=== PATIENT | female | born 1980 | race Caucasian/White ===

== ENCOUNTER 2017-05-18 22:21 | Emergency (ER) | payer MEDICAID, SELFPAY ==
[2017-05-18 22:22] VITALS: BP 117/69; PULSE 78; RESP 16; TEMP 37.4; O2SAT 97; BMI 28.3
--- NOTE | 2017-05-18 22:38 | ED.VISSUMM ---
- ER Visit Summary Date of Service: 05/18/17 Chief Complaint: Right breast pain History of Present Illness: The patient is a 37 F who is 16 weeks presents to the emergency department with 24 hours of increasing right breast pain. Patient states that 15 years ago, she had an abscess just below the right nipple. She did have operative incision and drainage in [place]. She states that it was thought to be secondary to her nipple piercing. She states that she put the piercing back in 2 years later. She has had no problems since. Over the past 24 hours, she had increasing pain in the right nipple. She states that it feels swollen. She states there was no fluid that can be expressed. She denies any fevers or chills. She has no history of immunosuppression. Physical Examination: Exam is relatively unremarkable. There is no significant tenderness of the breast. The right nipple is edematous and indurated. The piercing is mobile but does cause pain. There is no purulence. There is no definite fluctuance. There is no surrounding cellulitis. Test Results: [] Emergency Department Course and Treatment: The patient may have an early abscess, but there was no fluctuance. I do not feel there is any purulent fluid. As it does involve the nipple, I do not feel it appropriate at this time to attempt incision and drainage as there is no definitive fluctuance or fluid collection. I am going to start the patient on Augmentin. I did general counselor her on warm compresses. This almost appears like an early mastitis. The patient will continue warm compresses. She will continue gentle traction on the nipple piercing. I did general counselor her that if there is any worsening symptoms in the next 24-48 hours to return to the emergency department for reevaluation. Patient is comfortable with this plan of care and will be discharged home. Treatment Plan: [] Disposition: Discharge Impression:. Right breast mastitis This note was generated with [employer] dictation software. It may contain incorrect words, spelling, and punctuation that were not noted in review of the chart prior to signing ED Disposition - Plan for ED Patient: Chief Complaint: Cellulitis Instructions: ED Breast Infec Prescriptions: Amox/Clavulanate Tablet [Augmentin Tablet] 875 mg PO Q12H #20 tab Referrals: Hal Moralez MD [Primary Care Provider] -
--- NOTE | 2017-05-18 22:41 | ED.DCSUM_ITS ---
- ER Visit Summary Date of Service: 05/18/17 Chief Complaint: Right breast pain History of Present Illness: The patient is a 37 F who is 16 weeks presents to the emergency department with 24 hours of increasing right breast pain. Patient states that 15 years ago, she had an abscess just below the right nipple. She did have operative incision and drainage in [place]. She states that it was thought to be secondary to her nipple piercing. She states that she put the piercing back in 2 years later. She has had no problems since. Over the past 24 hours, she had increasing pain in the right nipple. She states that it feels swollen. She states there was no fluid that can be expressed. She denies any fevers or chills. She has no history of immunosuppression. Physical Examination: Exam is relatively unremarkable. There is no significant tenderness of the breast. The right nipple is edematous and indurated. The piercing is mobile but does cause pain. There is no purulence. There is no definite fluctuance. There is no surrounding cellulitis. Test Results: [] Emergency Department Course and Treatment: The patient may have an early abscess , but there was no fluctuance. I do not feel there is any purulent fluid. As it does involve the nipple, I do not feel it appropriate at this time to attempt incision and drainage as there is no definitive fluctuance or fluid collection. I am going to start the patient on Augmentin. I did awake overnight counselor her on warm compresses. This almost appears like an early mastitis. The patient will continue warm compresses. She will continue gentle traction on the nipple piercing. I did awake overnight counselor her that if there is any worsening symptoms in the next 24-48 hours to return to the emergency department for reevaluation. Patient is comfortable with this plan of care and will be discharged home. Treatment Plan: [] Disposition: Discharge Impression:. Right breast mastitis This note was generated with [employer] dictation software. It may contain incorrect words, spelling, and punctuation that were not noted in review of the chart prior to signing ED Disposition - Plan for ED Patient: Chief Complaint: Cellulitis Instructions: ED Breast Infec Prescriptions: Amox/Clavulanate Tablet [Augmentin Tablet] 875 mg PO Q12H #20 tab Referrals: Hal Moralez MD [Primary Care Provider] -
[2017-05-18] MEDS: Amox/Clavulanate 875 MG Tablet PO (22:46)
== END 2017-05-18 22:53 | disposition home or self-care (01) ==
PROVIDERS: Emergency Provider Emergency Medicine; Family Provider Family Medicine; PCP Family Medicine
DX: O91.212 Nonpurulent mastitis associated with pregnancy, second trimester (principal); Z3A.16 16 weeks gestation of pregnancy; O99.332 Smoking (tobacco) complicating pregnancy, second trimester; Z79.899 Other long term (current) drug therapy
CPT/HCPCS: 99283

== ENCOUNTER 2017-05-24 22:18 | Emergency (ER) | payer MEDICAID, SELFPAY ==
[2017-05-24 22:20] VITALS: BP 132/74; PULSE 88; RESP 16; TEMP 37.1; O2SAT 98; BMI 27.3
--- NOTE | 2017-05-24 23:22 | ED.DCSUM_ITS ---
- ER Visit Summary Date of Service: 05/24/17 Chief Complaint: [Right breast swelling and pain] History of Present Illness: The patient is a 37 F [resents the emergency department with right breast swelling and pain. It has been going on for the last 1 week. She was seen in the emergency department a week ago. She was started on Augmentin. Continues to get worse more painful and then she has started to get erythema medially she has had subjective fevers at home occasional chills. She has had nausea and vomiting because of the pain. She is 17 weeks . She has had no abdominal pain vaginal bleeding or leakage of fluid. She has been on Augmentin for the past 6 days. She has been doing warm compresses and occasionally will get some greenish drainage.] Physical Examination: [] Afebrile vital signs within acceptable limits Regular rate and rhythm no murmurs clear To auscultation bilaterally Emanation of the right breast reveals a 2 cm firm nodule underneath the area Carlos it is very tender. There is erythema. She has a nipple ring in place and there is a small amount of drainage from the medial hole. There is a mild amount of cellulitis medially Test Results: [] Emergency Department Course and Treatment: [Patient was given IV clindamycin. CBC was sent. I spoke with Dr. Ferreira who states he can see the patient in the next 1-2 days. She will be changed to clindamycin from Augmentin she will continue warm compresses. She was given careful precautions for which to return.] Treatment Plan: [] Disposition: [Discharge] Impression: [Right breast infection] This note was generated with [employer] dictation software. It may contain incorrect words, spelling, and punctuation that were not noted in review of the chart prior to signing ED Disposition - Plan for ED Patient: Chief Complaint: Cellulitis Referrals: Hal Moralez MD [Primary Care Provider] -
--- NOTE | 2017-05-24 23:22 | ED.DEP ---
ED Disposition - Plan for ED Patient: Chief Complaint: Cellulitis Instructions: Discharge Instructions for Cellulitis Prescriptions: Clindamycin [Cleocin] 300 mg PO 4X/DAY #80 capsule Referrals: Tim Ferreira MD [STAFF PHYSICIAN] - 1 Day Additional Instructions: stop Augmentin
[2017-05-24 23:30] LABS: Absolute Lymphocyte Count 2.24 X10^3/ul (0.83-4.51); Absolute Neutrophil Count 9.7 X10^3/uL (2.0-7.7); Basophil# 0.01 X10^3/uL; Basophil% 0.1 % (0-1); Eosinophil# 0.25 X10^3/uL; Eosinophils% 1.9 % (0-5); Hematocrit 34.6 % (37-47); Hemoglobin 11.7 g/dl (12.0-15.0); Lymphocyte # 2.24 X10^3/ul (4.0); Lymphocyte % 17.2 % (19-41); Mean Corp Hgb Conc 33.8 g/gl (32-36); Mean Corpuscular Hgb 30.5 pg (27.0-32.0); Mean Corpuscular Volume 90.1 fL (81-99); Mean Platelet Vol. 9.1 fl (6.2-12.0); Monocyte# 0.75 X10^3/uL; Monocyte% 5.8 % (0-10); Neutrophil # 9.67 X10^3/uL (2.7-7.7); Neutrophil % 74.5 % (47-70); Platelet Count 259 K/mm3 (150-450); RBC Distribution Width CV 13.8 % (11.6-14.6); RBC Distribution Width SD 45.6 fl (35.1-43.9); Red Blood Count 3.84 M/mm3 (4.2-5.4)
[2017-05-24 23:32] LABS: POSITIVE COUNT NO; POSITIVE DIFFERENTIAL NO; POSITIVE MORPHOLOGY NO
[2017-05-24 23:58] VITALS: BP 121/75; PULSE 71; RESP 17; O2SAT 97
== END 2017-05-25 | disposition home or self-care (01) ==
LOC: ED 23:05
PROVIDERS: Emergency Provider Emergency Medicine; Family Provider Family Medicine; PCP Family Medicine
DX: O91.212 Nonpurulent mastitis associated with pregnancy, second trimester (principal); Z3A.17 17 weeks gestation of pregnancy
CPT/HCPCS: 85025; 96365; 99283; J7040; A4216

== ENCOUNTER → 2017-06-15 14:24 | Outpatient (CLI) | payer MEDICAID, SELFPAY ==
[2017-06-15 14:57] LABS: Amphetamine Urine VISTA NEGATIVE (<1000 ng/mL); Barbiturate Urine VISTA NEGATIVE (< 200 ng/mL); Benzodiazepine Urine VISTA NEGATIVE (< 200 ng/mL); Cocaine Urine VISTA NEGATIVE (< 300 ng/mL); Ecstacy Urine VISTA POSITIVE (< 500 ng/mL); Methadone Urine VISTA NEGATIVE (< 300 ng/mL); PCP Urine VISTA NEGATIVE (< 25 ng/mL); THC Urine VISTA POSITIVE (< 50 ng/mL); Vista UDS pH Range 6
== END ==
PROVIDERS: Family Provider Family Medicine; PCP Family Medicine; Visit Provider Obstetrics & Gynecology
DX: Z34.82 Encounter for supervision of other normal pregnancy, second trimester (principal)
CPT/HCPCS: 80307

== ENCOUNTER → 2017-08-17 10:51 | Outpatient (CLI) | payer MEDICAID, SELFPAY ==
[2017-08-17 14:05] LABS: Hematocrit 34.9 % (37-47); Mean Corp Hgb Conc 34.4 g/gl (32-36); Mean Corpuscular Volume 93.1 fL (81-99); Mean Platelet Vol. 9.7 fl (6.2-12.0); Platelet Count 298 K/mm3 (150-450); RBC Distribution Width CV 13.4 % (11.6-14.6); RBC Distribution Width SD 44.6 fl (35.1-43.9); Red Blood Count 3.75 M/mm3 (4.2-5.4); White Blood Count 12.9 K/mm3 (4.4-11.0)
[2017-08-17 14:10] LABS: Scan Indicated on CBC? Y/N NO
[2017-08-17 14:11] LABS: Glucose Challenge Gest 1H 50g 116 mg/dL (70-140)
== END ==
PROVIDERS: Visit Provider Obstetrics & Gynecology
DX: Z34.83 Encounter for supervision of other normal pregnancy, third trimester (principal)
CPT/HCPCS: 36415; 82950; 85027

== ENCOUNTER → 2017-10-12 18:24 | Outpatient (CLI) | payer MEDICAID, SELFPAY ==
[2017-10-12 20:30] LABS: Group B Strep DNA By PCR Negative (Negative); Internal Control PASS; Probe Check PASS; Specimen Processing Control PASS
== END ==
PROVIDERS: Family Provider Family Medicine; PCP Family Medicine; Visit Provider Obstetrics & Gynecology
DX: Z36.85 Encounter for antenatal screening for Streptococcus B (principal)
CPT/HCPCS: 87081; 87653

== ENCOUNTER 2017-10-24 16:50 | Inpatient (IN) | payer MEDICAID, SELFPAY ==
[2017-10-24 15:12] VITALS: BMI 27.3
[2017-10-24 15:49] LABS: ROM Internal Control Test YES-OK TO RESULT pt. (Internal QC)
[2017-10-24 15:50] LABS: ROM Patient Test POSITIVE (Negative)
[2017-10-24] MEDS: Oxytocin 30 units/NS 500 ml 30 UNITS/500 ML IV.SOLN IV (17:18)
[2017-10-24] MEDS: Lactated Ringers 1,000 ML 50 ML IV ×3 (17:30→21:00)
[2017-10-24 17:34] LABS: Hematocrit 38.5 % (37-47); Hemoglobin 12.9 g/dl (12.0-15.0); Mean Corp Hgb Conc 33.5 g/gl (32-36); Mean Corpuscular Hgb 31.5 pg (27.0-32.0); Mean Corpuscular Volume 93.9 fL (81-99); Mean Platelet Vol. 9.8 fl (6.2-12.0); Platelet Count 353 K/mm3 (150-450); RBC Distribution Width SD 47.9 fl (35.1-43.9); White Blood Count 15.8 K/mm3 (4.4-11.0)
[2017-10-24 17:36] LABS: Scan Indicated on CBC? Y/N NO
[2017-10-24] MEDS: fentaNYL-bupivacaine (epidural) 100 ML BAG EPIDURAL (20:52)
[2017-10-24] MEDS: Ondansetron 4 MG/2 ML Vial IV (20:54)
[2017-10-24] MEDS: Oxytocin 30 units/NS 500 ml 30 UNITS/500 ML IV.SOLN 334 UNITS IV (22:49)
--- NOTE | 2017-10-24 23:03 | PCM.OB.VAG ---
- Problem List (1) 39 weeks gestation of Status: Acute Vaginal Delivery Maternal Presentation: Spontaneous Rupture of Membranes, - Method of Induction: Pitocin Medical Reason for Induction: Premature Rupture of Membranes Amniotic Membrane Rupture Type: Spontaneous at home Rupture of Membrane time: 10/21/17 0845h Amniotic Fluid Description: Clear Final CHASE: 10/30/17 Final CHASE Source: US <20 weeks Gestational age: 39 Weeks and 1 Days Date of Procedure: 10/24/17 Pre-Operative Diagnosis: 39 1/7wga, SROM Post-Operative Diagnosis: 39 1/7wga, SROM Surgery/ Procedure Performed: Spontaneous Vaginal Delivery Anesthesiologist: Amberly Marquez Type of Anesthesia: Epidural Description of Procedure: Patient was FD/+2. She pushed to deliver a female over an intact perineum through a nuchal cord. The infant was placed on the maternal abdomen and further attended by nursery personnel. The cord was doubly clamped and cut. Cord gases were obtained. The placenta delivered spontaneously and appeared intact on inspection. The fundus was firm at the umbilicus. Sponge counts correct x 2. Presentation: Vertex Placental Delivery Description: Spontaneous Placenta Disposition: [facility] Cord Vessel Description: 3 Vessels Nuchal Cord Compression: With compression Cord Gases drawn per routine: ABG, VBG Cord Entanglement: Around neck x 1, tight Drain: Carrillo to straight drain Estimated Blood Loss: 350 ml A gender: Female (1 minute): 8 (5 minute): 9 Episiotomy Description: None Laceration: None Medications given after delivery: IV Pitocin Complications: None
--- NOTE | 2017-10-24 23:10 | DCINST_ITS ---
Discharge Diet: No Restrictions Discharge Activity: Return to Normal Activity May resume sexual activity in: 6 weeks Lifting Restrictions: 20-25lb Call your doctor if you observe: Fever of 101 or Higher, Inability to urinate, Inability to have a bowel movement, Using more than one pad per hour, Shortness of breath, Chest pain, Calf discomfort, Uncontrolled pain Additional Instructions: If you experience any of the following, contact your healthcare provider. * Bleeding that soaks a pad every hour for 2 hours * Fever 100.4 or higher * Unrelieved incision or abdominal pain * Swelling, redness, discharge or bleeding from your incision or episiotomy site * Your incision begins to separate * Problems urinating (including inability to urinate or burning while urinating) . * Visual changes * Severe headache * Flu-like symptoms * Pain or redness in one of both of your breasts * Pain, warmth, tenderness or swelling in your legs, especially the calf area * Frequent nausea and vomiting * Symptoms of depression or anxiety If you experience any of the following, call 911 or go to the nearest Emergency Room. * Chest pain * Problems breathing * Seizure activity * Partial or complete paralysis of a body part, slurred speech, weakness or drooping of the face, or a sudden inability to walk or hold your balance Allergies/Adverse Reactions: Allergies venom-honey bee [bee venom (honey bee)] Allergy (Verified 05/26/17 13:26) Anaphylaxis Medications to take at Discharge Amox/Clavulanate Tablet [Augmentin Tablet] 875 mg PO Q12H #20 tab 05/18/17 Pnv No.122/Iron/Folic Acid [ Multi Tablet] 1 ea PO DAILY 05/18/17 Citalopram [Celexa] 40 mg PO DAILY 10/24/17 Hydroxyzine Pamoate [Vistaril] 50 mg PO DAILY 10/24/17 Ibuprofen 600 mg PO TID PRN #30 tab 10/24/17 buPROPion SR [Wellbutrin SR (150mg tablets)] 150 mg PO DAILY 10/24/17 traZODone [Desyrel] 100 mg PO QHS 10/24/17 The following prescriptions were given: Ibuprofen 600 mg PO TID PRN #30 tab PRN Reason: Pain Please Follow Up With: Demi Lundberg MD When: 1-2 weeks Please Follow Up With: Demi Lundberg MD When: 6 weeks Primary Care Physician: Hal Moralez MD [Primary Care Provider] - Test Results: Test results from this visit will be discussed in further detail at your follow- up appointment, if applicable.
[2017-10-24] MEDS: Oxytocin 30 units/NS 500 ml 30 UNITS/500 ML IV.SOLN 167 UNITS IV (23:19)
[2017-10-25] MEDS: Ibuprofen 600 MG Tablet PO ×4 (00:04→23:44)
[2017-10-25] MEDS: Amox/Clavulanate 875 MG Tablet PO (00:05)
[2017-10-25] MEDS: hydrOXYzine PAM 25 MG Capsule 50 MG PO ×2 (00:28→22:42)
[2017-10-25] MEDS: Citalopram 40 MG TABLET PO ×2 (00:28→22:41)
[2017-10-25] MEDS: buPROPion (SR) 150 MG Tablet.SA PO ×2 (00:28→22:42)
[2017-10-25] MEDS: traZODone 100 MG Tablet PO ×2 (00:39→22:41)
[2017-10-25 04:00] VITALS: BP 128/86; PULSE 74; RESP 16
[2017-10-25 08:00] VITALS: BP 119/67; PULSE 67; RESP 16; TEMP 36.7
[2017-10-25] MEDS: Senna/Docusate Sodium 1 Tablet PO (08:12)
--- NOTE | 2017-10-25 08:30 | PCM.PN.OB ---
Patient Problems: Active and Suspected Problems (Last Updated 05/26/17 @ 13:25 by Kimberli Corey) 39 weeks gestation of (Acute) Subjective: No issues overnight. Doing well. nursing well. Denies heavy lochia. Objective: avss - Physical Exam General: Alert, Oriented x3, Cooperative HEENT: Atraumatic, Normocephalic Lungs: Clear to auscultation, Normal air movement Cardiovascular: Regular rate, Regular Rhythm, Normal S1, Normal S2 Abdomen: Soft, Non Tender, Non-Distended, - - Fundus firm and nontender, lochia scant Extremities: No edema, No Calf Tenderness Neurological: Neuro grossly intact Psych/Mental Status: Normal Affect, Appropriate, Alert and oriented to time, place, person, mood and affect Vital Signs Temp Pulse Resp BP 98.1 F 67 16 119/67 10/25/17 08:00 10/25/17 08:00 10/25/17 08:00 10/25/17 08:00 Oxygen Delivery Method Room Air Weight: 81.737 kg Body Mass Index (BMI) 27.3 Intake and Output for Last 24 Hours 10/23/17 10/24/17 10/25/17 23:59 23:59 23:59 Output Total 100 / 100 200 / 200 Balance -100 / -100 -200 / -200 Laboratory Tests Past 24 Hrs 10/24/17 10/24/17 10/24/17 15:05 17:15 17:40 WBC 15.8 H RBC 4.10 L Hgb 12.9 Hct 38.5 MCV 93.9 MCH 31.5 MCHC 33.5 RDW 14.0 RDW Differential 47.9 H Plt Count 353 MPV 9.8 Vag Amniotic Fld Detect POSITIVE H Blood Type A POSITIVE Antibody Screen NEGATIVE Medical Necessity - Tobacco Use Smoking Status: Light Smoker (<10/day) Assessment/Plan All Active Problems (Last Updated 05/26/17 @ 13:25 by Kimberli Corey) 39 weeks gestation of (Acute) 37yo PPD#1 s/p doing well. -A pos, Rubella immune - -Routine care
--- NOTE | 2017-10-25 10:23 | NURSING ---
pt staes had been on augmentin after breast abcess 4 months ago/ Pt has not been on augmentin since.
[2017-10-25 12:00] VITALS: BP 117/72; PULSE 69; RESP 16; TEMP 36.6
[2017-10-25] MEDS: Prenatal Vits Tablet 1 TABLET PO (12:25)
[2017-10-25 16:00] VITALS: BP 119/76; PULSE 72; RESP 16; TEMP 36.7
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
[2017-10-25 20:40] VITALS: BP 123/74; PULSE 66; RESP 18; TEMP 36.6
--- NOTE | 2017-10-25 22:18 | NURSING ---
patient states her nipples were peirced and she has battled infection in the right breast for years and recently had another infection and when she squeezes states there is stil infection coming out so plans to only feed on the other side and pump and dump on the infected side util the drainage runs clear.
[2017-10-26 02:00] VITALS: BP 107/55; PULSE 80; RESP 18; TEMP 36.3
--- NOTE | 2017-10-26 08:09 | PCM.PN.OB ---
Patient Problems: Active and Suspected Problems (Last Updated 05/26/17 @ 13:25 by Kimberli Corey) 39 weeks gestation of (Acute) Subjective: PPD#2 doing well. Cramping controlled with ibuprofen . Baby is in SCN due to low blood sugar last pm. States much improved with supplement, spoon feed formula. Has IV also. decision to be made later today re baby to regular nursery / home / continue SCN - Physical Exam General: Alert, Oriented x3, Cooperative, No apparent distress HEENT: Atraumatic Neck: Supple Abdomen: Soft - Fundus firm NT at umbilicus minus 1-2 cm. Neurological: Cranial nerves II-XII grossly intact Psych/Mental Status: Normal Affect Vital Signs Temp Pulse Resp BP 97.3 F L 80 18 107/55 L 10/26/17 02:00 10/26/17 02:00 10/26/17 02:00 10/26/17 02:00 Oxygen Delivery Method Room Air Weight: 81.737 kg Body Mass Index (BMI) 27.3 Intake and Output for Last 24 Hours 10/24/17 10/25/17 10/26/17 23:59 23:59 23:59 Output Total 100 / 100 200 / 200 Balance -100 / -100 -200 / -200 Medical Necessity - Tobacco Use Smoking Status: Light Smoker (<10/day) Assessment/Plan All Active Problems (Last Updated 05/26/17 @ 13:25 by Kimberli Corey) 39 weeks gestation of (Acute) PPD#2 Stable pp. Dischg home today. Eligible for hotel if baby is not released. RTO in 6 wk for pp check, prn sooner.
[2017-10-26] MEDS: Ibuprofen 600 MG Tablet PO (08:38)
[2017-10-26] MEDS: Prenatal Vits Tablet 1 TABLET PO (08:40)
[2017-10-26 08:45] VITALS: BP 115/69; PULSE 84; RESP 16; TEMP 36.3; O2SAT 97
[2017-10-26 14:15] VITALS: BP 128/67; PULSE 75; RESP 16; TEMP 36.6; O2SAT 98
--- NOTE | 2017-10-26 16:30 | CASEMGMT ---
Social Work Labor and Delivery Unit Behavioral Health therapist to unit to see patient/mother of baby today. Per staff, [facility] plans to start the program and will be contacting program next week to set up a start time. This underwriter solicitation director spoke with [facility], confirmed plan to start program. Baby is now in the [facility] nursery at [facility]. Called [facility] ([facility]) and spoke with Elizabeth in the intake department. Referral due to substance exposed infant, positive for marijuana at (via urine drug screen). Brief maternal and histories provided to Elizabeth. A case will be opened and [facility] to follow up with MOB once baby is discharged home to the community. No other services requested or indicated from [facility] standpoint. Family will continue to be followed from the [facility] site (which this underwriter solicitation director provides social work to the [facility] for continuity of families in the [facility]). MOB has been provided community resources information and depression packet for home going. -RAMON Adair, ELECTRICAL TEST TECHNICIAN
[2017-10-26 17:35] VITALS: BP 110/68; PULSE 67; RESP 16; TEMP 36.9
--- NOTE | 2017-10-28 11:50 | BH.NOTE ---
BH: Inpatient Note - Notes Behavioral Health Inpatient Note: 10/26/17 fruit harvest worker, Laura Echols, requested consult from behavior health due to patient's increased anxiety. This communications writer entered patient's room introduced self and reason for consult, met with patient alone. Patient reported her baby was in a special care nursery due to decreased blood sugar levels. Patient reported she was extremely anxious and felt out of control last night when she found out her baby had to go to the special care nursery. This communications writer reviewed the behavioral health intensive outpatient program. Patient reported she was extremely interested in being able to start the program. Patient stated she wants to be able to manage her anxiety more appropriately and not go back to using drugs as self-medication. Patient reported feeling a lot of guilt that she started using marijuana while for the last month of . Patient able to recognize she cannot change choices she has made in the past but states she is driven to make sure she does not make those decisions again. Patient shared her history of treatment and past traumas. Reported she gets triggered when she feels like she is losing her children and when triggered does not know how to cope. Patient endorses current symptoms of racing thoughts, uncontrollable worry, increased irritability, guilt, self-doubt and no motivation. Client denies suicidal ideation, plan or intent. Patient cooperative throughout consult, eye contact good, mood anxious, tearful at times, speech within normal limits, no evidence of delusions or hallucinations. Pt reported she is interested in starting the [facility] behavioral health program. Reported she will be able to use her cousin as a box builder. Pt agreeable to call this communications writer Wednesday11/01/17 to set up a date to begin program. This communications writer provided pt with brochure of Behavioral Health program and number to call this communications writer on Wednesday. This communications writer updated SW. Phoenix Stewart
--- NOTE | 2017-11-02 16:20 | NURSING ---
Follow up phone call , no voicemail, no answer
== END 2017-10-26 17:35 | disposition home or self-care (01) | DRG 373 ==
LOC: WP 22:38 → WPOUT 10-25 10:25 → WP 10-25 10:25
PROVIDERS: Admitting Provider Obstetrics & Gynecology; Family Provider Family Medicine; PCP Family Medicine; Visit Provider Obstetrics & Gynecology
DX: O42.12 Full-term premature rupture of membranes, onset of labor more than 24 hours following rupture (principal); Z3A.39 39 weeks gestation of pregnancy; Z37.0 Single live birth; O69.81X0 Labor and delivery complicated by cord around neck, without compression, not applicable or unspecified
CPT/HCPCS: 59025; 59050; 84112; 85027; 86850; 86900; 99218; J7120; G0378; J2405

== ENCOUNTER → 2018-04-22 13:19 | Outpatient (CLI) | payer MEDICAID, SELFPAY ==
[2018-04-22 16:17] LABS: Chlamydia Trachomatis by PCR Negative (Negative); Neisserai gonorrhoeae by PCR Negative (Negative)
[2018-04-22 16:18] LABS: Probe Check PASS; Sample Adequacy Control PASS; Specimen Processing Control PASS
== END ==
PROVIDERS: Visit Provider Obstetrics & Gynecology
DX: Z30.431 Encounter for routine checking of intrauterine contraceptive device (principal)
CPT/HCPCS: 87491; 87591